=== PATIENT | male | born 1965 | race Caucasian/White ===

== ENCOUNTER 2021-12-20 07:21 | Emergency (ER) | payer OTHER ==
[~2021-12-20] VITALS: Ht 172.7 cm; Wt 83.9 kg
[2021-12-20 07:29] VITALS: BP_SYST 166
--- NOTE | 2021-12-20 07:33 | NUR ---
BIBS WITH C/C OF PRIAPRISM. PT REPORTS INJECTING DRUG TRIMIX FOR ED INTO RIGHT SIDE OF PENIS. DOSE INJECTED 3 UNITS. AFTER INTERCOURSE AND EJACULATION PT REPORTS CONTINUED PAINFUL ERECTION. PRESENTS WITH ERECT PENIS. PT HAD USED IN PAST APPROXIMATELY 3-4 YEARS AGO WITH NO PROBLEMS. PT HX OF ESRD, HTN, DM WITH DIALYSIS M,W, F. PERMACATH TO LEFT CW. REPORTS PAIN /, NO MEDS TAKEN.
--- NOTE | 2021-12-20 07:54 | NUR ---
PLACED IN BED 2, DR. FRANKS UPDATED ON STATUS.
[2021-12-20] MEDS ORDERED: LIDOCAINE 1%, 20 ML MDV 20 ML ONE (07:55)
--- NOTE | 2021-12-20 07:58 | NUR ---
Orders Rcvd and placed
--- NOTE | 2021-12-20 07:58 | NUR ---
MD at bedside assessing patient
[2021-12-20] MEDS ORDERED: LIDOCAINE 1% 10 MG/ML, 20 ML MDV INJ ONE (08:00)
[2021-12-20] MEDS ORDERED: PHENYLEPHRINE HCL 10 MG/ML VIAL (NEOSYNEPHRINE) IVP ONE (08:00)
[2021-12-20] MEDS ORDERED: BACITRACIN 1 GM OINT TP ONE ×2 (08:43→11:15)
[2021-12-20 09:07] VITALS: BP_SYST 158
--- NOTE | 2021-12-20 09:09 | NUR ---
DR. FRANKS ASPIRATED FROM RIGHT SIDE AT BASE OF PENIS. APPROXIMATELY 70ML ASPIRATED. PRIAPRISM RESOVLED AFTER ASPIRATION AND INJECTION OF NEOSYNEPHRINE. TOLERATED WELL. NO HEMATOMA NOTED. NO ACTIVE BLEEDING. CONDITION STABLE. PT CLEARED FOR DC. VSS, AFEBRILE. PT VERBALIZED UNDERSTANDING OF DC INSTRUCTIONS. PT AMBULATED OUT OF ED IN STABLE CONDITION.
== END 2021-12-20 09:09 | disposition home or self-care (01) ==
LOC: SED 07:21
DX: N48.30 Priapism, unspecified (principal); R10.2 Pelvic and perineal pain; Z79.899 Other long term (current) drug therapy
CPT/HCPCS: 99283; 96374; J2001; J2370

== ENCOUNTER 2022-01-01 23:34 | Emergency (ER) | payer OTHER ==
[~2022-01-01] VITALS: Ht 172.7 cm; Wt 83.9 kg
[2022-01-02 00:06] VITALS: BP_SYST 174
[2022-01-02] MEDS ORDERED: LIDOCAINE MPF 2% 5mL VIAL INJ ONE (00:30)
[2022-01-02] MEDS ORDERED: TERBUTALINE SULFATE 5 MG TABLET PO ONE (00:30)
--- NOTE | 2022-01-02 00:48 | NUR ---
Pt c/c of his penis pain after taking Trimex tonight to be intimate with his . Pt reported that he had the same issue last time and went to the ER for priapism. He reports 7/[address] time[address] Dr Mcdonald seen pt with no orders at this time. Notified of MD bateman current bp 203/105. Pt denies CP, denies SOB. NSR on monitor at this time. PMH: ESRD, HTN, DM.
--- NOTE | 2022-01-02 00:56 | NUR ---
Verbal order from DR Jimenez to give pt Catapres 0.2 mg PO.
[2022-01-02] MEDS ORDERED: cloNIDine HCL 0.1 MG TABLET PO ONE ×2 (01:00→02:30)
[2022-01-02] MEDS ORDERED: cloNIDine HCL 0.1 MG TABLET ONE (01:01)
[2022-01-02 01:28] VITALS: BP_SYST 201
[2022-01-02] MEDS ORDERED: LIDOCAINE 2%, 20 ML MDV ONE (01:37)
[2022-01-02] MEDS ORDERED: TERBUTALINE SULFATE 5 MG TABLET ONE (01:51)
[2022-01-02] MEDS ORDERED: PHENYLEPHRINE HCL 10 MG/ML VIAL (NEOSYNEPHRINE) ONE (02:42)
--- NOTE | 2022-01-02 03:28 | NUR ---
DC PT HOME AAO,NO SOB NOTED AND NOT IN ANY DISTRESS. DC INSTRUCTION WERE GIVEN TO PT ALSO INSTRUCTED TO F/U WITH HIS PCP. HE VERBALIZED UNDERSTANDING
== END 2022-01-02 03:27 | disposition home or self-care (01) ==
LOC: SED 23:34
DX: N48.33 Priapism, drug-induced (principal); Z79.899 Other long term (current) drug therapy
CPT/HCPCS: 99284; J2001; J2370